=== PATIENT | male | born 1945 | race African-American/Black ===

== ENCOUNTER → 2021-01-27 | Outpatient (CLI) | payer MEDICARE, OTHER ==
--- NOTE | 2021-01-27 16:45 | CARD ---
MR#: [id number] Date of Study: 01/27/2021 Ordering Physician: CANDACE VASQUEZ, Referring Physician: CANDACE VASQUEZ, Tech: Carol Neha, [facility] APPROVED REPORT EXAM: Two-dimensional and M-mode echocardiogram with Doppler and color Doppler. Other Information Quality : GoodHR: 68bpm INDICATION Hypertension/HCVD Edema 2D DIMENSIONS RVDd2.7 (2.9-3.5cm)Left Atrium(2D)2.2 (1.6-4.0cm) IVSd0.9 (0.7-1.1cm)Aortic Root(2D)3.7 (2.0-3.7cm) LVDd4.4 (3.9-5.9cm)LVOT Diameter2.1 (1.8-2.4cm) PWd0.8 (0.7-1.1cm)LVDs3.1 (2.5-4.0cm) FS (%) 30.3 %SV52.0 ml LVEF(%)57.8 (>50%) Aortic Valve AoV Peak Rob.126.4cm/sAoV VTI21.1cm AO Peak GR.6.4mmHgLVOT Peak Rob.102.7cm/s LVOT VTI 16.08cmAO Mean GR.3mmHg LISA (VMAX)2.08px8NPO (VTI)2.61cm2 Mitral Valve MV E Amelabpw56.1cm/sMV DECEL LUWE198hj MV A Vbotjuwl65.0cm/sMV E Mean Gr.1mmHg MV SIN84lbA/A Ratio0.6 MVA (PHT)2.45cm2 Pulmonary Valve PV Peak Ybowmzki72.3cm/sPV Peak Grad.2mmHg Tricuspid Valve TR P. Gnupwszh268qx/sRAP ZINMINBN3tuQc TR Peak Gr.54aeBcMSPC52bcDn Pulmonary Vein S1 Gnzswgeg47.6cm/sD2 Culrkmce54.9cm/s PVa [id number] LEFT VENTRICLE The left ventricle is normal size. There is normal left ventricular wall thickness. The left ventricu lar systolic function is normal. The Ejection Fraction is 55-60%. There is normal LV segmental wall m otion. Transmitral Doppler flow pattern is Grade I-abnormal relaxation pattern. RIGHT VENTRICLE The right ventricle is normal size. There is normal right ventricular wall thickness. The right ventr icular systolic function is normal. ATRIA The left atrium size is normal. The right atrium size is normal. The interatrial septum is intact wit h no evidence for an atrial septal defect or patent foramen ovale as noted on 2-D or Doppler imaging. AORTIC VALVE The aortic valve is normal in structure and function. Doppler and Color Flow revealed no significant aortic regurgitation. Calculated aortic valve area is 2.02 cm2 with maximum pressure gradient of 10 m mHg and mean pressure gradient of 4 mmHg. There is no significant aortic valvular stenosis. MITRAL VALVE The mitral valve is normal in structure and function. There is no evidence of mitral valve prolapse. There is no mitral valve stenosis. Doppler and Color-flow revealed trace mitral regurgitation. TRICUSPID VALVE The tricuspid valve is normal in structure and function. Doppler and Color Flow revealed trace tricus pid regurgitation with an estimated PAP of 26 mmHg. There is no tricuspid valve stenosis. PULMONIC VALVE The pulmonic valve is not well visualized. Doppler and Color Flow revealed trace pulmonic valvular re gurgitation. GREAT VESSELS The aortic root is normal in size. The IVC is normal in size and collapses >50% with inspiration. PERICARDIAL EFFUSION There is no evidence of significant pericardial effusion. Critical Notification Critical Value: No <Conclusion> The left ventricular systolic function is normal. The Ejection Fraction is 55-60%. There is normal LV segmental wall motion. Transmitral Doppler flow pattern is Grade I-abnormal relaxation pattern. Trace mitral regurgitation. Trace tricuspid regurgitation with an estimated PAP of 26 mmHg. There is no evidence of significant pericardial effusion. Signed by : Dylan Pak, Electronically Approved : 01/27/2021 16:44:23
== END ==
LOC: ECHO 09:02
PROVIDERS: ATTEND Internal Medicine
DX: C84.00 Mycosis fungoides, unspecified site (principal); I10 Essential (primary) hypertension; R60.0 Localized edema
CPT/HCPCS: 93306